=== PATIENT | male | born 1955 | race Caucasian/White ===

== ENCOUNTER 2024-08-01 08:24 | Emergency (ER) | payer OTHER ==
[2024-08-01] MEDS ORDERED: FAMOTIDINE 20 MG/2 ML VIAL IV ONE (09:08)
[2024-08-01] MEDS ORDERED: NA CHLORIDE 0.9% 2,000 ML ONE (09:08)
[2024-08-01] MEDS ORDERED: CEFTRIAXONE 1000 MG/VIAL ONE ×2 (09:08→10:22)
--- NOTE | 2024-08-01 09:28 | RAD REPORT ---
EXAMINATION: ONE VIEW CHEST XR CLINICAL INDICATION: Male, 69 years old.,Cough;Abdominal distention TECHNIQUE: Frontal chest projection is submitted. Examination is limited by patient positioning and t echnique. COMPARISON: No prior exam. FINDINGS: The lungs are well inflated and clear. No pneumothorax or sizable effusion. The heart is normal in s ize. Mediastinal contours are within normal apart from tortuosity of the aorta. IMPRESSION: No acute intrathoracic abnormalities.
[2024-08-01 09:37] LABS: Influenza A Ag Negative; Influenza B Ag Negative; SARS-CoV-2 Antigen Rapid Res Negative (Negative)
[2024-08-01 09:45] LABS: Absolute Eosinophils 0.2 K/uL (0-0.5); Absolute Lymphocytes (CBC) 1.3 K/uL (0.7-4.9); Absolute Monocytes 0.5 K/uL (0.1-1.3); Absolute Neutrophil 4.7 K/uL (1.8-8.0); Basophils % 0.7 % (0-1.3); Eosinophils % 2.9 % (0-4.4); Hematocrit 44.8 % (39.6-49.0); Hemoglobin 15.5 g/dL (13.6-17.9); Lymphocytes % 19.8 % (15.3-44.8); MCH 30.7 pg (27.0-35.0); MCHC 34.7 g/dL (32.0-36.0); MCV 88.6 fL (80-100); Monocytes % 7.3 % (3.3-12.3); Neutrophils % 69.3 % (41.7-73.7); Nucleated Red Blood Cells % 0.1 % (0-0); Platelets 223 thou/uL (152-406); RBC Red Blood Cell Count 5.06 M/uL (4.33-5.43); Red Cell Distribution Width 13.5 % (12.1-15.2)
[2024-08-01 09:50] LABS: PT Prothrombin Time 10.8 SECONDS (10-13.0); Protime INR 0.94
--- NOTE | 2024-08-01 09:56 | RAD REPORT ---
EXAM: CT CHEST, ABDOMEN AND PELVIS WITHOUT CONTRAST CLINICAL INDICATION: Male, 69 years old. Cough;Abdominal distention TECHNIQUE: CT chest, abdomen and pelvis was performed, without IV contrast, as per department protoco l. Axial, sagittal and coronal reconstructions were obtained. One or more of the following dose reduction techniques were used: Automated exposure control, adjustment of the mA and/or kV according to the patient size, and/or iterative reconstruction. Unless otherwise specified, incidental findings do not require dedicated imaging follow-up. COMPARISON: No prior exam. FINDINGS: The lack of intravenous contrast limits the sensitivity of this exam for evaluation of solid visceral organs, vascular structures, and retroperitoneum. Chest: LOWER NECK/CHEST WALL: Visualized thyroid gland and soft tissues are normal. LUNGS AND AIRWAYS: Airways are clear. No evidence of airspace or interstitial process. No suspicious nodules. 5 mm calcified granuloma along the left costophrenic angle. PLEURA: No pleural effusion. No pneumothorax. Hemidiaphragms are normally positioned. MEDIASTINUM AND LYMPH NODES: No mediastinal mass or fluid collection. Normal size mediastinal, hilar, and axillary lymph nodes. Multiple calcified small lymph nodes in the subcarinal and right hilar regions, suggesting sequelae of remote granulomatous infection. THORACIC AORTA: Normal caliber and configuration. PULMONARY ARTERIES: Normal caliber. HEART: Unremarkable. Abdomen/Pelvis LIVER: Normal in size and contour. Diffuse parenchymal hypoattenuation suggesting steatosis. No focal lesion. GALLBLADDER/BILE DUCTS: No biliary ductal dilatation. PANCREAS: No mass, ductal dilation, or laura-pancreatic fluid. SPLEEN: Normal size. No focal lesion. ADRENALS: Normal; no mass. KIDNEYS AND URETERS: Normal size and contour. No hydronephrosis. GASTROINTESTINAL TRACT: Stomach is non-dilated. Small bowel has normal course and caliber. No colonic wall thickening. Mild Pericolonic inflammatory changes throughout the colon, relatively sparing the sigmoid. Few diverticula along the descending colon. Appendix is unremarkable. PERITONEUM: No free fluid. LYMPH NODES: No lymphadenopathy. ABDOMINAL AORTA AND OTHER VESSELS: Normal caliber aorta and IVC. URINARY BLADDER: Normal contour. REPRODUCTIVE ORGANS: No pathologic process. MUSCULOSKELETAL: No acute or suspicious osseous abnormality. ADDITIONAL FINDINGS: Small left inguinal hernia containing fat. IMPRESSION: Mild pericolonic fat stranding relatively sparing the sigmoid, suggests mild infectious or inflammato ry colitis. Diffuse hepatic parenchymal hypoattenuation suggesting steatosis. Other incidental findings as above.
[2024-08-01 10:03] LABS: Albumin 3.7 g/dL (3.4-5.0); Albumin/Globulin Ratio 1.2 (1.1-1.8); Anion Gap 8.7 mEq/L (5.0-15.0); Bilirubin Direct 0.2 mg/dL (0-0.2); Bilirubin Indirect, Calculated 0.3 mg/dL (0.2-0.8); Bilirubin Total 0.5 mg/dL (0.2-1.0); Globulin 3.2 g/dL (2.3-3.5); Magnesium 1.9 mg/dL (1.6-2.4); Potassium 3.7 mEq/L (3.5-5.1); Protein, Total 6.9 g/dL (6.4-8.2)
[2024-08-01 10:05] LABS: Specific Gravity 1.015 (1.005-1.030); Urine Bilirubin NEGATIVE (Negative); Urine Blood Negative (Negative); Urine Clarity Clear (Clear); Urine Color Light-Yellow (Yellow); Urine Glucose NEGATIVE (Negative); Urine Ketones NEGATIVE (Negative); Urine Microscopic Reflex YN NO UMIC; Urine Nitrite NEGATIVE (Negative); Urine Protein NEGATIVE (Negative); Urine Urobilinogen Normal (Normal)
[2024-08-01] MEDS ORDERED: CIPROFLOXACIN 400mg IV 400 MG/200 ML BAG IV ONE (10:22)
[2024-08-01] MEDS ORDERED: METRONIDAZOLE 500mg IVPB 500 MG/100 ML BAG IV ONE (10:23)
--- NOTE | 2024-08-01 10:32 | ER ---
Nurse's Notes [facility] Name: Neptali Tristan Age: 69 yrs Sex: Male : 1955 Arrival Date: 08/01/2024 Time: 08:24 Bed 18 Private MD: Diagnosis: Diarrhea, unspecified;Weakness;Fever, unspecified;Other specified noninfective gastroenteritis and colitis Presentation: 08/01 08:27 Chief complaint: EMS states: toned out for fever, diarrhea, and feeling weak x 2 days, mb9 20 g left AC and gave 1 liter of LR. Coronavirus screen: Vaccine status: Patient reports being unvaccinated. Ebola Screen: No symptoms or risks identified at this time. Initial Sepsis Screen: Does the patient meet any 2 criteria? No. Patient's initial sepsis screen is negative. Does the patient have a suspected source of infection? No. Patient's initial sepsis screen is negative. Risk Assessment: Do you want to hurt yourself or someone else? Patient reports no desire to harm self or others. Onset of symptoms was 2024. 08:27 Acuity: ZOEY 3 mb9 08:27 Method Of Arrival: EMS: [facility] mb9 08:30 Care prior to arrival: Medication(s) given: LR. mb9 Triage Assessment: 08:29 General: Appears uncomfortable, Behavior is cooperative. Pain: Denies pain. EENT: No mb9 signs and/or symptoms were reported regarding the EENT system. Neuro: Level of Consciousness is awake, alert, obeys commands, Oriented to person, place, time, situation, Appropriate for age. Cardiovascular: Patient's skin is warm and dry. Respiratory: Airway is patent Respiratory effort is even, unlabored, Respiratory pattern is regular, symmetrical. GI: Abdomen is round non-distended, Bowel sounds present X 4 quads. Abd is soft and non tender X 4 quads. Reports diarrhea. : No signs and/or symptoms were reported regarding the genitourinary system. Derm: Skin is pink, warm \T\ dry. Musculoskeletal: Range of motion: intact in all extremities. Historical: - Allergies: 08:28 Morphine; mb9 - Home Meds: 08:28 levothyroxine oral [Active]; Ambien Oral [Active]; mb9 - PMHx: 08:28 Hypertensive disorder; mb9 - PSHx: 08:28 right shoulder; mb9 - Immunization history:: Adult Immunizations up to date. - Infectious Disease History:: Denies. - Social history:: Smoking status: Patient denies any tobacco usage or history of. Screenin:31 [facility] ED Fall Risk Assessment (Adult) History of falling in the last 3 months, mb9 including since admission No falls in past 3 months (0 pts) Confusion or Disorientation No (0 pts) Intoxicated or Sedated No (0 pts) Impaired Gait No (0 pts) Mobility Assist Device Used No (0 pt) Altered Elimination No (0 pt) Score/Fall Risk Level 0 - 2 = Low Risk Oriented to surroundings, Maintained a safe environment, Educated pt \T\ family on fall prevention, incl call for assistance when getting out of bed. Abuse screen: Denies threats or abuse. Nutritional screening: No deficits noted. Tuberculosis screening: No symptoms or risk factors identified. Assessment: 08:31 Reassessment: see triage assessment. mb9 09:44 Reassessment: No changes from previously documented assessment. Patient and/or family mb9 updated on plan of care and expected duration. Pain level reassessed. Patient is alert, oriented x 3, equal unlabored respirations, skin warm/dry/pink. 10:35 Reassessment: D/C pending completion of IV antibiotics. mb9 11:38 Reassessment: No changes from previously documented assessment. Patient and/or family mb9 updated on plan of care and expected duration. Pain level reassessed. Patient is alert, oriented x 3, equal unlabored respirations, skin warm/dry/pink. Vital Signs: 08:27 BP 139 / 62; Pulse 78; Resp 16; Temp 97.7(O); Pulse Ox 97% ; Weight 99.79 kg; Height 5 mb9 ft. 9 in. ; Pain 0/10; 09:44 BP 148 / 66; Pulse 70; Resp 18; Pulse Ox 97% on R/A; mb9 11:07 BP 112 / 62; Pulse 62; Resp 16; Pulse Ox 95% on R/A; mb9 08:27 Body Mass Index 32.49 (99.79 kg, 175.26 cm) mb9 08:27 Pain Scale: Adult mb9 ED Course: 08:26 Patient arrived in ED. mb9 08:26 Arm band placed on. mb9 08:27 Jerome Jones MD is Attending Physician. rocio 08:28 Triage completed. mb9 08:30 Maintain EMS IV. Dressing intact. Good blood return noted. Site clean \T\ dry. Gauge \T\ mb 9 site: 20 left AC. Flushed with 10 mL NS. 08:31 Brittney Kelley RN is Primary Nurse. mb9 08:31 Bed in low position. Call light in reach. Side rails up X 1. Provided Education on: mb9 press call light if needing anything. Client placed on continuous cardiac and pulse oximetry monitoring. NIBP monitoring applied. 08:50 First set of blood cultures drawn by me. mb9 08:57 Second set of blood cultures drawn by me. mb9 09:00 EKG done, by ED staff, reviewed by Jerome Jones MD. mb9 09:03 Group A Streptococcus Rapid Sent. mb9 09:04 COVID-19 Ag + Flu A+B Ag Sent. mb9 09:04 Inserted saline lock: 20 gauge in right forearm, using aseptic technique. Blood mb9 collected. Flushed with 10 mL NS. 09:04 No provider procedures requiring assistance completed. mb9 09:04 Initial lab(s) drawn, by me, sent to lab. mb9 09:13 XRAY Chest (1 view) In Process Unspecified. EDMS 09:27 CT Chest Abdomen Pelvis W/O Contrast In Process Unspecified. EDMS 10:31 Omid Dempsey MD is Referral Physician. rocio 12:00 IV discontinued, intact, bleeding controlled, No redness/swelling at site. Pressure mb9 dressing applied. Administered Medications: 09:10 Drug: Rocephin IV 1 grams IV at per protocol once; Given slow IV push per pharmacy mb9 instructions Route: IV; Rate: per protocol; Site: left antecubital; 10:31 Follow up: Response: No adverse reaction; IV Status: Completed infusion mb9 09:14 Drug: NS 0.9% IV (30 ml/kg) 30 ml/kg IV at bolus once; Sepsis Protocol; to be given as mb9 a bolus over 90 minutes Route: IV; Rate: bolus; Site: left antecubital; 10:31 Follow up: Response: No adverse reaction; IV Status: Completed infusion mb9 09:14 Drug: Famotidine IVP 20 mg IVP once; dilute with 10 mL 0.9% NaCl; give over 2 minutes mb9 Route: IVP; Site: right forearm; 10:20 Follow up: Response: No adverse reaction mb9 10:21 Not Given (Duplicate Order): ns 0.9% 1000 ml IV at 1000 ml once; to be given as a bolus rocio over 60 minutes 10:30 Drug: metroNIDAZOLE IVPB 500 mg 100 ml IVPB at 200 ml/hr once over 30 mins Volume: 100 mb9 ml; Route: IVPB; Rate: 200 ml/hr; Infused Over: 30 mins; Site: left antecubital; 10:55 Follow up: Response: No adverse reaction; IV Status: Completed infusion mb9 10:30 Drug: Rocephin IV 1 grams IV at per protocol once; Given slow IV push per pharmacy mb9 instructions Route: IV; Rate: per protocol; Site: left antecubital; 10:43 Follow up: Response: No adverse reaction; IV Status: Completed infusion mb9 10:43 Drug: Ciprofloxacin IVPB 400 mg 200 ml IVPB once over 60 mins Volume: 200 ml; Route: mb9 IVPB; Infused Over: 60 mins; Site: right forearm; 12:00 Follow up: Response: No adverse reaction; IV Status: Completed infusion mb9 Medication: 08:31 VIS not applicable for this client. mb9 Outcome: 10:31 Discharge ordered by . rocio 12:00 Discharged to home ambulatory, mb9 12:00 Condition: stable 12:00 Discharge instructions given to patient, Instructed on discharge instructions, follow up and referral plans. Demonstrated understanding of instructions, follow-up care, medications, Prescriptions given X 4, 12:06 Patient left the ED. mb9 Signatures: Dispatcher [employer] EDJerome Fink MD MD cha Wilkerson, Mary Beth, RN RN mb9
--- NOTE | 2024-08-01 10:32 | EDPHYS ---
Physician Documentation [facility] Name: Neptali Tristan Age: 69 yrs Sex: Male : 1955 Arrival Date: 08/01/2024 Time: 08:24 Bed 18 Private MD: JIM Physician Jerome Jones HPI: 08/01 09:17 This 69 yrs old Male presents to ER via EMS with complaints of Diarrhea, rocio Fever, General Weakness. 09:17 The patient presents to the emergency department with nausea, diarrhea, that is rocio intermittent. Onset: The symptoms/episode began/occurred 2 day(s) ago. Possible causes: unknown. The symptoms are aggravated by nothing. The symptoms are alleviated by nothing. Associated signs and symptoms: Pertinent positives: abdominal pain, diarrhea. Severity of symptoms: At their worst the symptoms were moderate in the emergency department the symptoms are unchanged. The patient has experienced similar episodes in the past, multiple times. Historical: - Allergies: 08:28 Morphine; mb9 - Home Meds: 08:28 levothyroxine oral [Active]; Ambien Oral [Active]; mb9 - PMHx: 08:28 Hypertensive disorder; mb9 - PSHx: 08:28 right shoulder; mb9 - Immunization history:: Adult Immunizations up to date. - Infectious Disease History:: Denies. - Social history:: Smoking status: Patient denies any tobacco usage or history of. ROS: 09:19 Constitutional: Negative for fever, chills, and weight loss, Eyes: Negative for injury, rocio pain, redness, and discharge, ENT: Negative for injury, pain, and discharge, Neck: Negative for injury, pain, and swelling, Cardiovascular: Negative for chest pain, palpitations, and edema, Respiratory: Negative for shortness of breath, cough, wheezing, and pleuritic chest pain, Back: Negative for injury and pain, : Negative for injury, bleeding, discharge, and swelling, MS/Extremity: Negative for injury and deformity, Skin: Negative for injury, rash, and discoloration, Psych: Negative for depression, anxiety, suicide ideation, homicidal ideation, and hallucinations, Allergy/Immunology: Negative for hives, rash, and allergies, Endocrine: Negative for neck swelling, polydipsia, polyuria, polyphagia, and marked weight changes, Hematologic/Lymphatic: Negative for swollen nodes, abnormal bleeding, and unusual bruising, 09:19 Abdomen/GI: Positive for abdominal pain, abdominal cramps, 09:19 Neuro: Positive for weakness, Exam: 09:19 Constitutional: This is a well developed, well nourished patient who is awake, alert, rocio and in no acute distress. Head/Face: Normocephalic, atraumatic. Eyes: Pupils equal round and reactive to light, extra-ocular motions intact. Lids and lashes normal. Conjunctiva and sclera are non-icteric and not injected. Cornea within normal limits. Periorbital areas with no swelling, redness, or edema. ENT: Nares patent. No nasal discharge, no septal abnormalities noted. Tympanic membranes are normal and external auditory canals are clear. Oropharynx with no redness, swelling, or masses, exudates, or evidence of obstruction, uvula midline. Mucous membranes moist. Neck: Trachea midline, no thyromegaly or masses palpated, and no cervical lymphadenopathy. Supple, full range of motion without nuchal rigidity, or vertebral point tenderness. No Meningismus. Chest/axilla: Normal chest wall appearance and motion. Nontender with no deformity. No lesions are appreciated. Cardiovascular: Regular rate and rhythm with a normal S1 and S2. No gallops, murmurs, or rubs. Normal PMI, no JVD. No pulse deficits. Respiratory: Lungs have equal breath sounds bilaterally, clear to auscultation and percussion. No rales, rhonchi or wheezes noted. No increased work of breathing, no retractions or nasal flaring. Abdomen/GI: Soft, non-tender, with normal bowel sounds. No distension or tympany. No guarding or rebound. No evidence of tenderness throughout. Back: No spinal tenderness. No costovertebral tenderness. Full range of motion. Male : Normal genitalia with no discharge or lesions. Skin: Warm, dry with normal turgor. Normal color with no rashes, no lesions, and no evidence of cellulitis. MS/ Extremity: Pulses equal, no cyanosis. Neurovascular intact. Full, normal range of motion., bilateral aka Neuro: Awake and alert, GCS 15, oriented to person, place, time, and situation. Cranial nerves II-XII grossly intact. Motor strength 5/5 in all extremities. Sensory grossly intact. Cerebellar exam normal. Normal gait. Psych: Awake, alert, with orientation to person, place and time. Behavior, mood, and affect are within normal limits. 09:19 ECG was reviewed by the Attending Physician. 09:19 Musculoskeletal/extremity: ROM: no acute changes, Pulses: Sensation intact. Compartment Syndrome exam of affected extremity: is normal. Calves: are non-tender, have equal circumference, Vital Signs: 08:27 BP 139 / 62; Pulse 78; Resp 16; Temp 97.7(O); Pulse Ox 97% ; Weight 99.79 kg; Height 5 mb9 ft. 9 in. ; Pain 0/10; 09:44 BP 148 / 66; Pulse 70; Resp 18; Pulse Ox 97% on R/A; mb9 11:07 BP 112 / 62; Pulse 62; Resp 16; Pulse Ox 95% on R/A; mb9 08:27 Body Mass Index 32.49 (99.79 kg, 175.26 cm) mb9 08:27 Pain Scale: Adult mb9 MDM: 08:27 Medical Screening Exam initiated rocio 09:20 Differential diagnosis: Nonspecific abd pain, gastritis, cholecystitis, pancreatitis, rocio appendicitis, diverticulitis, viral gastroenteritis, gastroenteritis. Differential Diagnosis altered mental status, sepsis, flu. Data reviewed: vital signs, nurses notes, lab test result(s), EKG, radiologic studies, plain films. Consideration of Admission/Observation Escalation of care including admission/observation considered. I considered the following discharge prescriptions or medication management in the emergency department Medications were administered in the Emergency Department. See MAR. Independent interpretation of the following test(s) in the Emergency Department EKG: See my EKG interpretation above. Test considered but Not performed: Ultrasound no abd usg. Care significantly affected by the following chronic conditions: Hypertension, Obesity. 08/01 08:37 Order name: Basic Metabolic Panel; Complete Time: 10:06 [facility] 08/01 08:37 Order name: CBC with Diff; Complete Time: 09:47 [facility] 08/01 08:37 Order name: LFT's; Complete Time: 10:06 [facility] 08/01 08:37 Order name: Magnesium; Complete Time: 10:06 [facility] 08/01 08:37 Order name: NT PRO-BNP; Complete Time: 10:06 [facility] 08/01 08:37 Order name: PT-INR; Complete Time: 09:54 [facility] 08/01 08:37 Order name: Troponin HS; Complete Time: 10:06 [facility] 08/01 08:37 Order name: Lipase; Complete Time: 10:06 [facility] 08/01 08:37 Order name: Blood Culture Adult (2) [facility] 08/01 08:37 Order name: Stool Culture [facility] 08/01 08:37 Order name: Fecal Leukocyte Stain [facility] 08/01 08:37 Order name: COVID-19 Ag + Flu A+B Ag; Complete Time: 09:44 [facility] 08/01 08:37 Order name: Group A Streptococcus Rapid [facility] 08/01 08:37 Order name: Lactate w/ 2H reflex if indic.; Complete Time: 09:44 [facility] 08/01 09:17 Order name: UA Rfx Luis A Cult if indicated; Complete Time: 10:06 [facility] 08/01 11:04 Order name: Throat Culture [facility] 08/01 08:37 Order name: XRAY Chest (1 view); Complete Time: 09:44 [facility] 08/01 08:37 Order name: CT Chest Abdomen Pelvis W/O Contrast; Complete Time: 10:06 [facility] 08/01 08:37 Order name: Cardiac monitoring; Complete Time: 08:41 [facility] 08/01 08:37 Order name: EKG - Nurse/Tech; Complete Time: 09:04 [facility] 08/01 08:37 Order name: IV Saline Lock; Complete Time: 09:04 [facility] 08/01 08:37 Order name: Labs collected and sent; Complete Time: 09:04 [facility] 08/01 08:37 Order name: O2 Per Protocol; Complete Time: 08:41 [facility] 08/01 08:37 Order name: O2 Sat Monitoring; Complete Time: 08:41 [facility] EC:19 Rate is 68 beats/min. Rhythm is regular. QRS [place] is Normal. [place] interval is normal. QRS rocio interval is normal. QT interval is normal. No Q waves. T waves are Normal. No ST changes noted. Clinical impression: NSR w/ Non-specific ST/T Changes and No evidence of ischemia. Interpreted by me. Reviewed by me. Administered Medications: 09:10 Drug: Rocephin IV 1 grams IV at per protocol once; Given slow IV push per pharmacy mb9 instructions Route: IV; Rate: per protocol; Site: left antecubital; 10:31 Follow up: Response: No adverse reaction; IV Status: Completed infusion mb9 09:14 Drug: NS 0.9% IV (30 ml/kg) 30 ml/kg IV at bolus once; Sepsis Protocol; to be given as mb9 a bolus over 90 minutes Route: IV; Rate: bolus; Site: left antecubital; 10:31 Follow up: Response: No adverse reaction; IV Status: Completed infusion mb9 09:14 Drug: Famotidine IVP 20 mg IVP once; dilute with 10 mL 0.9% NaCl; give over 2 minutes mb9 Route: IVP; Site: right forearm; 10:20 Follow up: Response: No adverse reaction mb9 10:21 Not Given (Duplicate Order): ns 0.9% 1000 ml IV at 1000 ml once; to be given as a bolus rocio over 60 minutes 10:30 Drug: metroNIDAZOLE IVPB 500 mg 100 ml IVPB at 200 ml/hr once over 30 mins Volume: 100 mb9 ml; Route: IVPB; Rate: 200 ml/hr; Infused Over: 30 mins; Site: left antecubital; 10:55 Follow up: Response: No adverse reaction; IV Status: Completed infusion mb9 10:30 Drug: Rocephin IV 1 grams IV at per protocol once; Given slow IV push per pharmacy mb9 instructions Route: IV; Rate: per protocol; Site: left antecubital; 10:43 Follow up: Response: No adverse reaction; IV Status: Completed infusion mb9 10:43 Drug: Ciprofloxacin IVPB 400 mg 200 ml IVPB once over 60 mins Volume: 200 ml; Route: mb9 IVPB; Infused Over: 60 mins; Site: right forearm; 12:00 Follow up: Response: No adverse reaction; IV Status: Completed infusion mb9 Disposition Summary: 08/01/24 10:31 Discharge Ordered Notes: Location: Home rocio Problem: new rocio Symptoms: have improved rocio Condition: Stable rocio Diagnosis - Diarrhea, unspecified rocio - Weakness rocio - Fever, unspecified rocio - Other specified noninfective gastroenteritis and colitis rocio Followup: rocio - With: Private Physician - When: 2 - 3 days - Reason: Recheck today's complaints, Continuance of care, Re-evaluation by your physician Followup: rocio - With: Omid Dempsey MD - When: 2 - 3 days - Reason: Recheck today's complaints, Re-evaluation by your physician Discharge Instructions: - Discharge Summary Sheet rocio - Food Choices to Help Relieve Diarrhea, Adult rocio - Diarrhea, Adult rocio - Fever, Adult rocio - Weakness rocio - Food Choices to Help Relieve Diarrhea, Pediatric, [id number] rocio - Fatigue rocio - Diarrhea, Adult, [id number] rocio - Weakness, [id number] rocio - Fever, Adult, [id number] rocio - Colitis [facility] Forms: - Medication Reconciliation Form rocio - Antibiotic Education rocio - Prescription Opioid Use rocio - Patient Portal Instructions [facility] - Leadership Thank You Letter [facility] - Work release form mb9 Prescriptions: - ondansetron 4 mg Oral Tablet,disintegrating - take 1 tablet ORAL route every 8 hours prn; 20 tablet; Refills: 0, Product [facility] Selection Permitted - Flagyl 500 mg Oral tablet - take 1 tablet ORAL route every 6 hours for 7 days; 28 tablet; Refills: 0, [facility] Product Selection Permitted - Cipro 500 mg Oral Tablet - take 1 tablet ORAL route every 12 hours for 7 days; 14 tablet; Refills: 0, [facility] Product Selection Permitted - dicyclomine 20 mg Oral tablet - take 1 tablet ORAL route 4 times per day; 28 tablet; Refills: 0, Product rocio Selection Permitted Signatures: Dispatcher [employer] EDJerome Fink MD MD cha Wilkerson, Brittney Huynh RN RN mb9 Corrections: (The following items were deleted from the chart) 08:38 08:38 BASIC METABOLIC PANEL+C.LAB.BRZ ordered. EDMS EDMS 08:38 08:38 CBC+H.LAB.BRZ ordered. EDMS EDMS 08:38 08:38 HEPATIC FUNCTION+C.LAB.BRZ ordered. EDMS EDMS 08:38 08:38 MAGNESIUM+C.LAB.BRZ ordered. EDMS EDMS 08:38 08:38 PROBNP+C.LAB.BRZ ordered. EDMS EDMS 08:38 08:38 PROTIME (+INR)+COAG.LAB.BRZ ordered. EDMS EDMS 08:38 08:38 Troponin High Sensitivity+C.LAB.BRZ ordered. EDMS EDMS 08:38 08:38 LIPASE+C.LAB.BRZ ordered. EDMS EDMS 08:38 08:38 BLOOD CULTURE*+BA.LAB.BRZ ordered. EDMS EDMS 08:38 08:38 Stool Culture+BA.LAB.BRZ ordered. EDMS EDMS 08:38 08:38 Fecal Leukocyte Stain+BA.LAB.BRZ ordered. EDMS EDMS 08:38 08:38 COVID-19 Ag + Flu A+B Ag+I.LAB.BRZ ordered. EDMS EDMS 08:38 08:38 Group A Streptococcus Rapid Sc+I.LAB.BRZ ordered. EDMS EDMS 08:38 08:38 LACTATE+C.LAB.BRZ ordered. EDMS EDMS 08:38 08:38 Chest Single View+RAD.RAD.BRZ ordered. EDMS EDMS 08:38 08:38 Chest Abdomen Pelvis Wo Con+CT.RAD.BRZ ordered. EDMS EDMS
[2024-08-01 13:02] VITALS: TEMP 97.7
[2024-08-01 13:06] VITALS: BP 112/62; O2SAT 95
--- NOTE | 2024-08-03 12:10 | EKG ---
Test Date: 2024-08-01 Test Time: 08:48:16 [place] [employer] Inserter: MB MEASUREMENT RESULTS: Intervals: Rate: 68 LA: 170 QRSD: 158 QT: 484 QTc: 514 Victor: P: 61 LA: 170 QRS: 4 T: 175 INTERPRETIVE STATEMENTS: Normal sinus rhythm Left bundle branch block Abnormal ECG No previous ECG available for comparison Electronically Signed On 08-03-24 12:07:19 CDT by Ramsey Roman
== END 2024-08-01 12:06 | disposition home or self-care (01) ==
LOC: ER 08:24
DX: K52.89 Other specified noninfective gastroenteritis and colitis (principal); R53.1 Weakness; R50.9 Fever, unspecified; I10 Essential (primary) hypertension; Z11.52 Encounter for screening for COVID-19
CPT/HCPCS: 93005; 87040 ×2; 87070; 87045; 85025; 80048; 36415; 83735; 89055; 85610; 80076; 87046; 83605; 81003; 84484; 83690; 83880; 71250; 74176; 71045; 99285; 87428; J0744; J7030; J0696 ×2